=== PATIENT | female | born 1950 | race African-American/Black ===

== ENCOUNTER 2019-06-14 05:52 | Inpatient (IN) ==
[2019-06-14] MEDS ORDERED: NS 1,000 ML IV ONE ×2 (06:46→09:40)
[2019-06-14] MEDS ORDERED: ZOFRAN IV ONE (06:47)
[2019-06-14] MEDS ORDERED: MORPHINE IV ONE (06:47)
[2019-06-14 07:18] LABS: BASO# 0.05 X1000 (0.0-0.2); BASO% 1.4 % (0.0-0.8); HEMATOCRIT 38.7 % (37.0-47.0); HEMOGLOBIN 12.9 g/dL (12.0-16.0); LYMPH# 1.38 X1000 (1.2-3.4); LYMPH% 39.7 % (20.5-51.1); MCH 29.1 PG (27-31); MCHC 33.3 g/dL (33-37); MCV 87.2 FL (81-99); MONO# 0.35 X1000 (0.11-0.59); MONO% 10.1 % (1.7-9.3); MPV 11.1 FL (7.4-10.4); NEUT% 48.8 % (42.2-75.2); PLT 265 X1000 (130-400); RBC 4.44 XMIL (4.2-5.4); RDW 12.4 % (11.5-14.5); WBC 3.48 X1000 (4.8-10.8)
--- NOTE | 2019-06-14 07:18 | PROVIDER DOCUMENTATION ---
HPI-Abdominal Pain/GI Problem - General Chief Complaint: Abdominal Pain Stated Complaint: N/V HEADACHE/ABD PAIN/BACK PAIN Time Seen by Provider: 06/14/19 07:00 Source: patient Allergies/Adverse Reactions: Patient Allergies Allergy/AdvReac Type Severity Reaction Status Date / Time aspirin Allergy Mild NAUSEA Verified 06/14/19 06:05 codeine Allergy RASH Verified 06/14/19 06:05 Home Medications: Home Medication List Medication Instructions Recorded Confirmed Last Taken Type Clonidine [Catapres] 0.1 mg PO TID PRN #20 tab 08/31/18 06/14/19 05/16/19 05:30 Rx Amlodipine Besylate 10 mg PO DAILY 05/11/19 06/14/19 05/16/19 05:30 History Carvedilol 25 mg PO BID 05/11/19 06/14/19 05/16/19 05:30 History Hydrochlorothiazide 25 mg PO QAM 05/11/19 06/14/19 05/16/19 05:30 History Losartan [Cozaar] 100 mg PO DAILY 05/11/19 06/14/19 05/15/19 08:30 History ROSUVAstatin [Crestor] 5 mg PO DAILY 05/11/19 06/14/19 05/15/19 20:00 History Sulfamethoxazole/Tmp D.s. [Septra 1 ea PO BID 06/14/19 06/14/19 Unknown History Ds] - History of Present Illness-ABD Nature of Presenting Problems: onset of sharp lower back, suprapubic pain on Sat. No radiation, nothing makes better nor worse. Denies trauma, denies lift/bend/twist. Went to urgent care, was dx with UTI, placed on Bactrim, but is not getting better. Began with N/V last pm, no change in BMs. No fever Abdominal Pain Onset Location: reports: suprapubic Review of Systems - Adult - REVIEW OF SYSTEMS - ADULT Constitutional: reports: no symptoms reported Eyes: reports: no symptoms reported Ears, Nose, Mouth & Throat: reports: no symptoms reported Cardiovascular: reports: no symptoms reported Respiratory: reports: no symptoms reported Gastrointestinal: reports: see HPI Genitourinary: reports: no symptoms reported Musculoskeletal: reports: see HPI Integumentary: reports: no symptoms reported Neurological: reports: no symptoms reported Psychiatric: reports: no symptoms reported Endocrine: reports: no symptoms reported Hematologic/Lymphatic: reports: no symptoms reported Allergic/Immunologic: reports: no symptoms reported Past History - Adult - PAST MEDICAL HISTORY-ADULT Review of Records: reports: Medications Reviewed Major Childhood Illnesses: reports: denies history Cardiovascular: reports: HTN Respiratory: reports: denies history Gastrointestinal: reports: denies history Genitourinary: reports: denies history Musculoskeletal: reports: denies history Neurological: reports: denies history Psychiatric: reports: denies history Endocrine/Immune: reports: denies history - IMMUNIZATION STATUS Childhood Immunizations: See Nurse Assessment Flu Vaccine: See Nurse Assessment - FAMILY HISTORY Family History: reviewed, not pertinent - SOCIAL HISTORY Smoking: denies Physical Exam-General - PHYSICAL EXAM-ADULT Initial Vital Signs Reviewed: Yes - CONSTITUTIONAL General Appearance: appears well, alert, moderate distress - EYES Eyes: PERRL/EOMI, pink conjunctivae - HEAD, EARS, NOSE, MOUTH & THROAT HENMT: normocephalic/atraumatic, moist mucous membranes, normal ENT inspection - NECK Neck: full range of motion, supple, normal inspection - RESPIRATORY Respiratory: lungs clear, normal breath sounds, no pleuratic chest pain, no respiratory distress, no accessory muscle use - CARDIOVASCULAR Cardiovascular: regular rate, rhythm, no edema - GASTROINTESTINAL (ABDOMEN) Abdominal Exam: normal bowel sounds, soft, tenderness (mild diffuse, sl more suprapubic) - MUSCULOSKELETAL Back Exam: normal inspection, no CVA tenderness, vertebral tenderness (lower lumbat, midline) Extremity: normal range of motion, non-tender, normal inspection, no pedal edema - SKIN Integumentary: normal color, normal turgor, warm/dry - NEUROLOGIC Neurologic: sound effects technician II-XII nml as tested, grossly normal, no motor/sensory deficits - PSYCHIATRIC Psych/Mental Status: normal mood/affect, normal thought content, normal thought process, oriented x 3 Progress - PLAN OF CARE/RESULTS Progress/Plan/Lab Results: Vital Signs - 8 hr 06/14/19 05:56 Temperature 98.2 F Pulse Rate 69 Respiratory Rate 20 Blood Pressure 130/66 O2 Sat by Pulse Oximetry 100 Orders Category Date Time Status Saline Loc DIRECTED Care 06/14/19 06:42 Active NPO Diet 06/14/19 06:[address] ABD/PELVIS W/IV CONT ONLY [CT] Stat Exams 06/14/19 07:09 Ordered CBC WITH ELECTRONIC DIFF [HEME] Stat Lab 06/14/19 06:42 Ordered COMPREHENSIVE METABOLIC PANEL [CHEM] Stat Lab 06/14/19 06:42 Ordered LIPASE [CHEM] Stat Lab 06/14/19 06:42 Ordered URINALYSIS W/POSS RFLX CULT [URINALYSIS] Stat Lab 06/14/19 06:42 Uncollected 0.9% Sodium Chloride Inj [Ns] 1,000 ml Med 06/14/19 06:46 Active IV 999 mls/hr Morphine Med 06/14/19 06:47 Discontinued 4 mg IV NOW ONE Ondansetron [Zofran] Med 06/14/19 06:47 Discontinued 4 mg IV NOW ONE Result Diagrams: 06/14/19 06:58 06/14/19 06:58 - CT/MRI 1 CT Study: Abdomen, Pelvis Impression: Normal (EXAM: CT ABDOMEN/PELVIS W/O CONTRAST INDICATION: abdominal pain. TECHNIQUE: This exam was performed using automated exposure control, adjustment of mA or kV according to patient size, and/or use of iterative reconstruction technique. COMPARISON: 08/02/2012 FINDINGS: The gallbladder, liver, spleen, pancreas, and adrenal glands are unremarkable as imaged with unenhanced CT. No renal or ureteral stones are identified and there is no hydronephrosis. The urinary bladder is unremarkable. There has been a prior hysterectomy. There is no evidence of appendicitis. There is no evidence of focal bowel wall thickening or bowel obstruction. The remainder of the GI tract is grossly unremarkable. No focal inflammatory changes, free abdominal gas, or free fluid is identified. There is no evidence of acute osseous abnormality. IMPRESSION: No evidence of acute pathology by unenhanced CT. Electronically signed by Andrei Wei 06/14/2019 8:49 AM 06/14/19 0849 Interpreting Physician: Andrei Wei MD Dictated Date/Time: 06/14/19 0846 cc: Cody Poon MD; Lisa Frye MD) - CONSULTS/PCP/HOSPITALIST Notification #1 *Consult/PCP/Hospitalist*: Hospitalist Time Discussed: 09:40 Consult Disposition: Will see in ED, Admit Departure - Departure Date of Disposition Decision: 06/14/19 Time of Disposition Decision: 09:42 DIAGNOSIS: Acute kidney injury UTI (urinary tract infection) Qualifiers: Urinary tract infection type: site unspecified Hematuria presence: without hematuria Qualified Code(s): N39.0 - Urinary tract infection, site not specified Disposition: ADMITTED INPATIENT 09 Certified Medical Emergency: Emergent Condition: Good Referrals and Follow-Ups: Lisa Frye MD [Primary Care Provider] - - Critical Care Note This patient required my direct & personal management of CC.: No Attestation - Physician/ AZAM Attestation Patient care was provided by Advanced Practice Provider:: No The physician spent face to face time with patient:: Yes Advanced Practice Provider documentation review:: Supervising physician onsite and consulted in the evaluation and care of this patient. The physician did have a face to face encounter with the patient.
[2019-06-14 07:39] LABS: ALB/GLOB RATIO 0.8; ALBUMIN 4.1 g/dL (3.5-5.0); CALCIUM 8.3 mg/dL (8.8-10.2); CREATININE 3.8 mg/dL (0.5-0.9); POTASSIUM 5.3 mmol/L (3.5-5.1); TOTAL BILIRUBIN 0.25 mg/dL (0.20-1.00); TOTAL PROTEIN 9.2 g/dL (6.3-8.3)
[2019-06-14 08:36] LABS: URINE SOURCE CLEAN CATCH
[2019-06-14 08:47] LABS: BILIRUBIN URINE NEGATIVE (NEGATIVE); BLOOD URINE NEGATIVE (NEGATIVE); COLOR YELLOW; GLUCOSE URINE NEGATIVE (NEGATIVE); KETONE URINE 10 mg/dL (NEGATIVE); LEUKOCYTES URINE LARGE (NEGATIVE); NITRITE URINE NEGATIVE (NEGATIVE); PROTEIN URINE 30 mg/dL (NEGATIVE); SP GRAVITY URINE 1.013; TURBIDITY URINE CLEAR (CLEAR); UROBILINOGEN URINE NORMAL (NORMAL)
[2019-06-14 08:48] LABS: UR EPITHELIAL CELLS <10 /HPF (<10); URINE BACTERIA 1+ /HPF; URINE RBC <10 /HPF (<10)
--- NOTE | 2019-06-14 08:51 | Diag Imaging Result Doc PS360 ---
EXAM: CT ABDOMEN/PELVIS W/O CONTRAST INDICATION: abdominal pain. TECHNIQUE: This exam was performed using automated exposure control, adjustment of mA or kV according to patient size, and/or use of iterative reconstruction technique. COMPARISON: 08/02/2012 FINDINGS: The gallbladder, liver, spleen, pancreas, and adrenal glands are unremarkable as imaged with unenhanced CT. No renal or ureteral stones are identified and there is no hydronephrosis. The urinary bladder is unremarkable. There has been a prior hysterectomy. There is no evidence of appendicitis. There is no evidence of focal bowel wall thickening or bowel obstruction. The remainder of the GI tract is grossly unremarkable. No focal inflammatory changes, free abdominal gas, or free fluid is identified. There is no evidence of acute osseous abnormality. IMPRESSION: No evidence of acute pathology by unenhanced CT. Electronically signed by Andrei Wei 06/14/2019 8:49 AM
[2019-06-14] MEDS ORDERED: ROCEPHIN 1 GM in NS 50 ML IV ONE (09:38)
[2019-06-14] MEDS ORDERED: LEVAQUIN 750 MG/D5W 750 MG/150 ML IVPB IV SCH (10:30)
--- NOTE | 2019-06-14 10:38 | HISTORY AND PHYSICAL ---
HISTORY OF PRESENT ILLNESS: This is a 69-year-old with a past medical history pretty much unremarkable. She had a biopsy and some cysts removed from her right breast recently, that was in April 2019. She has had a hysterectomy. She has a history of hypertension. This is a 69-year-old who, today is Thursday, on Thursday she went an urgent care. They treated her for bladder infection. Stated she really did not getting any better. She stayed nauseated and had fever and chills and general malaise and so came back into the emergency room today. It appears she has acute kidney injury and volume depletion, probably prerenal, as well as urinary tract infection, possible pyelonephritis. ALLERGIES: Codeine and aspirin. SOCIAL HISTORY: Negative for alcohol or tobacco. No illicit drugs. REVIEW OF SYSTEMS: General: No weight gain or loss. She has had fever since Thursday, today is Thursday, off and on fever and chills. General malaise. HEENT: No change in visual or hearing acuity. Note she does have a complaint of a headache, just generalized headache for the last couple days. Neck: No neck pain. No adenopathy. Respiratory: No increased work of breathing or dyspnea. Cardiovascular: No chest pain or tachy palpitation. Gastrointestinal/Genitourinary: No change in her bowels. She has had frequent urination and discomfort in the suprapubic area in the lower back. No real costovertebral angle tenderness. Musculoskeletal/Neurologic: No complaints. No focal changes. PHYSICAL EXAMINATION: GENERAL: She is awake, alert, oriented x3, pleasant. VITAL SIGNS: Temperature 98.2 degrees, pulse 69, respirations 20, blood pressure 130/66. HEENT: Pupils are equal and round. LUNGS: Clear in all lung major. CARDIOVASCULAR: Regular rhythm and rate without murmur or S3. ABDOMEN: Soft. SKIN: Warm and dry. Lower abdomen tender. LABORATORY DATA: White blood cell count 3480, hematocrit 38, platelet count 265,000. Sodium 130, potassium 5.3, chloride 90, BUN 71, creatinine 3.8, AST 18, ALT is 13, albumin 4.1. Urinalysis unremarkable. Abdominal and pelvic CT: No evidence of acute pathology by unenhanced CT. ASSESSMENT AND PLAN: 1. Urinary tract infection, possible pyelonephritis. We will obtain urine and cultures. She was put on antibiotic since Thursday and that was the Bactrim Double Strength 1 twice a day. I am going to go ahead and put her on Levaquin 500 mg intravenously daily. 2. Acute kidney injury, possible acute tubular necrosis. We will give her fluid, give her normal saline, run it at 100 mL an hour. Follow her electrolytes. 3. Hypertension. We will follow blood pressure carefully as well. Continue her home medications. I think she was on amlodipine 10 mg daily and carvedilol 25 mg b.i.d. We will hold the hydrochlorothiazide, give her Crestor. She has a history of hyperlipidemia, and we will continue her Cozaar 100 mg a day as well. cc: Pepe Ritter MD
[2019-06-14] MEDS ORDERED: CATAPRES PO PRN (12:01)
[2019-06-14] MEDS ORDERED: ZOFRAN IV PRN (12:01)
[2019-06-14] MEDS ORDERED: TYLENOL PO PRN (12:01)
[2019-06-14 12:34] LABS: UR CREAT RANDOM 63.9 mg/dL (11-20)
[2019-06-14] MEDS: NS 1,000 ML IV SCH ×2 (12:38→22:50)
[2019-06-14 12:40] LABS: BASO# 0.04 X1000 (0.0-0.2); BASO% 1.1 % (0.0-0.8); HEMATOCRIT 33.5 % (37.0-47.0); LYMPH# 1.71 X1000 (1.2-3.4); LYMPH% 46.8 % (20.5-51.1); MCH 28.9 PG (27-31); MCHC 32.8 g/dL (33-37); MCV 88.2 FL (81-99); MONO# 0.59 X1000 (0.11-0.59); MONO% 16.2 % (1.7-9.3); MPV 10.4 FL (7.4-10.4); NEUT# 1.31 X1000 (1.4-6.5); NEUT% 35.9 % (42.2-75.2); PLT 225 X1000 (130-400); RDW 12.4 % (11.5-14.5); WBC 3.65 X1000 (4.8-10.8)
[2019-06-14 12:55] LABS: AGAP 17; ALB/GLOB RATIO 0.8; ALBUMIN 3.4 g/dL (3.5-5.0); ALKALINE PHOSPHATASE 70 U/L (32-104); BUN 63 mg/dL (8-22); CALCIUM 7.3 mg/dL (8.8-10.2); CHLORIDE 98 mmol/L (98-107); COSMO 281; CREATININE 3.2 mg/dL (0.5-0.9); ESTIMATED GFR 17; GLUCOSE 113 mg/dL (70-104); GOT 14 U/L (10-30); GPT 10 U/L (10-36); MAGNESIUM 2.4 mg/dL (1.5-2.7); POTASSIUM 4.8 mmol/L (3.5-5.1); SODIUM 131 mmol/L (136-145); TCO2 16 mmol/L (25-35); TOTAL BILIRUBIN < 0.15 mg/dL (0.20-1.00); TOTAL PROTEIN 7.5 g/dL (6.3-8.3)
[2019-06-14 13:03] LABS: BANDS 6 % (0-1); LYMPHS 46 % (21-51); MONO 18 % (1-9); SEGS 28 % (42-75)
[2019-06-14] MEDS ORDERED: SODIUM CHLORIDE 0.9% INJ PRN (14:10)
[2019-06-14] MEDS: PHENERGAN IV PRN ×2 (14:18→20:42)
[2019-06-14] MEDS ORDERED: PHENERGAN ONE (14:22)
[2019-06-14] MEDS: COREG PO SCH (20:42)
[2019-06-15] MEDS: PHENERGAN IV PRN ×2 (08:33→20:18)
[2019-06-15] MEDS: NORVASC PO SCH (09:30)
[2019-06-15] MEDS: COREG PO SCH ×2 (09:30→20:17)
[2019-06-15] MEDS: CRESTOR PO SCH (09:31)
[2019-06-15] MEDS: COZAAR PO SCH (09:31)
[2019-06-15] MEDS: PRILOSEC PO SCH (09:31)
--- NOTE | 2019-06-15 10:46 | PROGRESS NOTE ---
DATE: 06/15/2019 SUBJECTIVE: Ms. López feels a little better today. She still had some nausea this morning. OBJECTIVE: She has remained afebrile, temperature 98.1 degrees, pulse 56, respirations 15, and blood pressure 149/56. Pupils are equal and round. Lungs are clear in all lung major. Cardiovascular exam with regular rhythm and rate without murmur or S3. Abdomen is soft. Skin is warm and dry. ASSESSMENT AND PLAN: She came in, and I am not sure if she had a viral gastroenteritis or possible pyelonephritis. She was treated for urinary tract infection. She had some acute kidney injury. Her creatinine came down to 3.2. We will continue present fluids, and current antibiotic. Urine culture with no growth thus far, and maybe she can go home tomorrow depending on how we are doing. cc: Pepe Ritter MD
[2019-06-15] MEDS: ROCEPHIN 1 GM in NS 50 ML IV SCH (12:08)
[2019-06-15] MEDS: NS 1,000 ML IV SCH ×2 (12:08→18:30)
[2019-06-15 18:52] LABS: URINE SOURCE CLEAN CATCH
[2019-06-15 18:59] LABS: BILIRUBIN URINE NEGATIVE (NEGATIVE); BLOOD URINE NEGATIVE (NEGATIVE); COLOR YELLOW; GLUCOSE URINE NEGATIVE (NEGATIVE); KETONE URINE NEGATIVE (NEGATIVE); LEUKOCYTES URINE NEGATIVE (NEGATIVE); NITRITE URINE NEGATIVE (NEGATIVE); PROTEIN URINE TRACE mg/dL (NEGATIVE); SP GRAVITY URINE 1.013; TURBIDITY URINE CLEAR (CLEAR); UROBILINOGEN URINE NORMAL (NORMAL)
[2019-06-15 19:00] LABS: UR EPITHELIAL CELLS <10 /HPF (<10); URINE BACTERIA NEGATIVE /HPF; URINE RBC <10 /HPF (<10); URINE WBC <10 /HPF (<10)
[2019-06-16] MEDS: NS 1,000 ML IV SCH (04:36)
[2019-06-16 08:21] LABS: CALCIUM 7.9 mg/dL (8.8-10.2); CREATININE 2.3 mg/dL (0.5-0.9); MAGNESIUM 2.2 mg/dL (1.5-2.7); POTASSIUM 4.8 mmol/L (3.5-5.1)
--- NOTE | 2019-06-16 09:08 | PROGRESS NOTE ---
DATE: 06/16/2019 SUBJECTIVE: Ms. López says she still does not feel very good. Abdomen is still a little upset with a little nausea. She is eating a little bit, and the food seems to be going down. Does not have much appetite. Her stools are loose. OBJECTIVE: Vital Signs: Temp 98.1 degrees, pulse 56, respirations 18, blood pressure 177/59. HEENT: Pupils are equal and round. Lungs: Clear in all lung major. Cardiovascular: Regular rhythm and rate without murmur or S3. Urine output is 1800 mL. ASSESSMENT AND PLAN: She came in with what looks like possible pyelonephritis or viral gastroenteritis. She had acute kidney injury with creatinine at 3.8; it has come down nice to 2.3. Electrolytes look pretty good today. Sodium 146, potassium 4.8, chloride 114, BUN 36, creatinine 2.3. Her blood counts look good. White count 3650, hematocrit 33, platelet count 225,000. Note, her magnesium was 2.2, so it looks like we are heading in the right direction. REVIEW OF ORDERS: Getting Tylenol, Norvasc 10 mg a day, Coreg 25 mg b.i.d., Catapres 0.1 mg p.o. t.i.d. p.r.n. elevated blood pressure, Cozaar 100 mg a day, normal saline at 100 mL an hour, ceftriaxone 1 gram every 24 hours, Crestor 5 mg a day. cc: Pepe Ritter MD
[2019-06-16] MEDS: COREG PO SCH ×2 (09:57→23:27)
[2019-06-16] MEDS: CRESTOR PO SCH (09:58)
[2019-06-16] MEDS: PRILOSEC PO SCH (09:58)
[2019-06-16] MEDS: COZAAR PO SCH (09:58)
[2019-06-16] MEDS: NORVASC PO SCH (09:58)
[2019-06-16] MEDS: ROCEPHIN 1 GM in NS 50 ML IV SCH (11:21)
[2019-06-16] MEDS: PHENERGAN IV PRN (23:27)
[2019-06-17] MEDS: NS 1,000 ML IV SCH ×2 (07:33→09:02)
[2019-06-17] MEDS: COREG PO SCH (08:56)
[2019-06-17] MEDS: COZAAR PO SCH (08:56)
[2019-06-17] MEDS: CRESTOR PO SCH (08:56)
[2019-06-17] MEDS: NORVASC PO SCH (08:57)
[2019-06-17] MEDS: PRILOSEC PO SCH (08:57)
[2019-06-17] MEDS: ROCEPHIN 1 GM in NS 50 ML IV SCH (11:59)
--- NOTE | 2019-06-17 13:49 | PROGRESS NOTE ---
DATE: 06/17/2019 SUBJECTIVE: Ms López was sleeping. She was easy to arouse, but had a good night's sleep. Daughter was at the bedside. OBJECTIVE: Vital signs: Temperature 99 degrees, pulse 59, respirations 18, blood pressure 166/73. HEENT: Pupils are equal and round. Lungs: Clear in all lung major. Cardiovascular: Regular rhythm and rate without murmur or S3. Abdomen: Soft. Skin: Warm and dry. ASSESSMENT AND PLAN: She came in with what looked like a possible urinary tract infection or viral gastroenteritis and maybe pyelonephritis. She seems to be doing much better. Her urine did not grow anything. She appeared to have acute kidney injury. Creatinine 3.8, is down to 2.3 yesterday. She is feeling better. I think she would probably like to go home, so we will check on her later today and see if she can go home. cc: Pepe Ritter MD
[2019-06-17 15:26] VITALS: BP 116/58
[2019-06-17 15:26] LABS: CALCIUM 7.6 mg/dL (8.8-10.2); CREATININE 1.7 mg/dL (0.5-0.9); POTASSIUM 4.6 mmol/L (3.5-5.1)
--- NOTE | 2019-06-17 17:39 | DISCHARGE SUMMARY ---
ADMISSION DATE: 06/14/2019 DISCHARGE DATE: 06/17/2019 She is followed by Dr. Lisa Frye MD. HISTORY AND HOSPITAL COURSE: A 69-year-old black with an unremarkable past medical history. She has had biopsies on some cysts in the right breast recently, April 2019. She has had a hysterectomy. She has a history of hypertension. She stated, today was Thursday, on Thursday she went to urgent care, treated for bladder infection, did not really getting better and stayed nauseated, and appeared to have acute kidney injury, primarily prerenal, volume depletion. I admitted her, gave her some fluids. I treated her for possible pyelonephritis. She had already been on antibiotics and there was no culture data to support this. She also could have had a viral gastroenteritis. She had not eaten or drank for a couple days and was nauseated. Her renal function, when she came in BUN was 71, creatinine 3.8, and it came down to 23 and 1.7 today and she is eating well. She wanted to go home. I will let her go home and I will put her on some Levaquin for another 7 days. Follow up with Dr. Frye. cc: Pepe Ritter MD
== END 2019-06-17 18:18 | disposition home or self-care (01) | DRG 690 ==
LOC: ED 05:52 → EDIPHOLD 10:28 → 4N 17:17 → 3N 22:29
PROVIDERS: ATTEND Emergency Medicine